=== PATIENT | female | born 1960 | race Caucasian/White ===

== ENCOUNTER → 2016-08-16 | Outpatient (CLI) | payer OTHER | LOC: M PAIN 11:00 | PROVIDERS: ATTEND Nurse Practitioner Family | DX: Z53.8 Procedure and treatment not carried out for other reasons (principal) ==

== ENCOUNTER → 2017-03-07 | Outpatient (CLI) | payer BC ==
--- NOTE | 2017-03-07 10:16 | REPMRS ---
Patient History The patient states she had a clinical breast exam in 02/2017. Patient is postmenopausal. Family history of pancreatic cancer in father at age 39, ovarian cancer in maternal aunt, colorectal cancer in maternal aunt, and ovarian cancer in maternal grandmother. Digital Woman Screen Mammo: March 07, 2017 - Exam #: [id number] Bilateral CC and MLO view(s) were taken. Technologist: Darling Torrez Technologist Prior study comparison: December 07, 2015, left breast digital mammo diagnostic unilateral, performed at [facility]. November 30, 2015, digital woman screen mammo performed at [facility]. November 08, 2014, digital woman screen mammo performed at [facility]. FINDINGS: The breast tissue is heterogeneously dense. This may lower the sensitivity of mammography. There is a moderate amount of heterogeneously dense fibroglandular tissue which is fairly symmetric. There is no interval development of dominant mass, architectural distortion, or clustered microcalcification typical of malignancy. There has been no change in the appearance of the mammogram from the prior studies. ASSESSMENT: BI-RADS/ACR category 1 mammogram. Negative. Recommendation Routine screening mammogram of both breasts in 1 year (for women over age 40). This mammogram was interpreted with the aid of an FDA-approved computer-aided dectection system. Electronically Signed By: Alex Gustafson MD 03/07/17 1016
--- NOTE | 2017-03-07 15:19 | REP ---
Pelvic sonography: History: Positive family history of ovarian carcinoma. Abdominal bloating. Findings: Transabdominal and transvaginal scanning are performed. Uterine dimensions are normal at 7.8 x 2.5 x 4.1 cm. Endometrial echo is 0.5 cm thick and centrally placed. Nabothian cysts are seen in the cervix, the largest is 1.1 cm in diameter. Normal ovaries are seen bilaterally. Right ovarian dimension is 1.8 x 0.9 x 1.7 cm. Left ovary measures 1.6 x 0.9 x 1.7 cm. Doppler flow is normal in both ovaries. Resistive indices are 0.53 on the right and 0.56 on the left. Impression: Normal pelvic sonography.
== END ==
LOC: M WHC 08:44
PROVIDERS: ATTEND Nurse Practitioner Family
DX: Z12.31 Encounter for screening mammogram for malignant neoplasm of breast (principal); Z80.41 Family history of malignant neoplasm of ovary; R14.0 Abdominal distension (gaseous)
CPT/HCPCS: 76830; 76856; G0202

== ENCOUNTER → 2018-03-11 | Outpatient (CLI) | payer BC | LOC: M WHC 09:16 | DX: Z12.31 Encounter for screening mammogram for malignant neoplasm of breast (principal) ==

== ENCOUNTER 2018-04-29 18:36 | Emergency (ER) | payer BC, OTHER ==
[2018-04-29 19:16] LABS: BASO % 0.4 % (0.0-1.0); EOS # 0.1 10^3/uL (0.0-0.50); HEMATOCRIT 42.3 % (36.0-47.0); HEMOGLOBIN 14.2 g/dl (12.0-15.5); IMMATURE GRANULOCYTE % 0.3 % (0-3.0); LYMPH % 30.2 % (24.0-44.0); MEAN CORPUSCULAR HEMOGLOBIN 32.1 pg (27.0-33.0); MEAN CORPUSCULAR HGB CONC 33.6 g/dl (32.0-36.5); MEAN CORPUSCULAR VOLUME 95.5 fl (80.0-96.0); MONO # 0.4 10^3/uL (0.0-0.8); MONO % 6.4 % (0.0-5.0); NEUTROPHILS # 4.2 10^3/uL (1.8-7.7); NEUTROPHILS % 61.7 % (36.0-66.0); PLATELET COUNT, AUTOMATED 295 10^3/uL (150-450); RED BLOOD COUNT 4.43 10^6/uL (4.00-5.40); RED CELL DISTRIBUTION WIDTH 12.4 % (11.5-14.5); WHITE BLOOD COUNT 6.8 10^3/uL (4.0-10.0)
[2018-04-29 19:29] LABS: INR 0.91; PROTHROMBIN TIME 12.3 SECONDS (12.1-14.4)
[2018-04-29 19:40] LABS: D-DIMER QUANT < 270.0 ng/ml (<500)
[2018-04-29 19:54] LABS: ALT/SGPT 35 U/L (12-78); ANION GAP 7 MEQ/L (8-16); AST/SGOT 23 U/L (7-37); BLOOD UREA NITROGEN 13 MG/DL (7-18); CALCIUM LEVEL 9.3 MG/DL (8.5-10.1); CARBON DIOXIDE LEVEL 30 MEQ/L (21-32); CHLORIDE LEVEL 105 MEQ/L (98-107); CK-MB VALUE MASS 1.5 NG/ML (<3.6); CPK CREATINE PHOSPHOKINASE 83 U/L (26-192); CREATININE FOR GFR 0.76 MG/DL (0.55-1.30); GLOMERULAR FILTRATION RATE > 60.0 (>51); GLUCOSE, FASTING 82 MG/DL (70-100); POTASSIUM SERUM 3.7 MEQ/L (3.5-5.1); SODIUM LEVEL 142 MEQ/L (136-145)
[2018-04-29 19:55] LABS: ALKALINE PHOSPHATASE 139 U/L (45-117); BILIRUBIN,DIRECT 0.2 MG/DL (0.0-0.2); BILIRUBIN,TOTAL 0.6 MG/DL (0.2-1.0); MB/CK RELATIVE INDEX 0.02 (< OR =4); TOTAL PROTEIN 7.7 GM/DL (6.4-8.2)
[2018-04-29 19:56] LABS: ALBUMIN 4.3 GM/DL (3.2-5.2); ALBUMIN/GLOBULIN RATIO 1.26 (1.00-1.93); NT-PRO BNP 24 PG/ML (<125); THYROXINE (T4) 8.7 UG/DL (4.5-12.0); TROPONIN I < 0.02 NG/ML (< 0.10)
[2018-04-29 23:07] LABS: GOLD SPEC TUBE RECIEVED
== END 2018-04-29 20:10 | disposition home or self-care (01) ==
LOC: M ED 18:36
DX: R06.02 Shortness of breath (principal); K21.9 Gastro-esophageal reflux disease without esophagitis; Z88.1 Allergy status to other antibiotic agents; Z88.2 Allergy status to sulfonamides
CPT/HCPCS: 71046

== ENCOUNTER → 2019-03-12 | Outpatient (REF) | payer OTHER ==
[~2019-03-12] MED LIST: FLUTISP; RANI15TA PO
[2019-03-17 14:08] LABS: HPV HYBRID CAPTURE II Negative (Negative)
== END ==
LOC: M SFHCWAGY 09:24
PROVIDERS: ATTEND Nurse Practitioner Family
DX: Z12.4 Encounter for screening for malignant neoplasm of cervix (principal)

== ENCOUNTER → 2019-03-12 | Outpatient (CLI) | payer BC ==
--- NOTE | 2019-03-12 10:27 | REPMRS ---
Patient History The patient states she had a clinical breast exam in 03/2019. Patient is postmenopausal. Family history of ovarian cancer and colorectal cancer in maternal aunt, ovarian cancer in maternal grandmother, pancreatic cancer at age 39 in father. No Hormone Replacement Therapy Digital Woman Screen Mammo: March 12, 2019 - Exam #: [id number] Bilateral CC and MLO view(s) were taken. Technologist: Venita Sanders, Technologist Prior study comparison: March 11, 2018, bilateral digital woman screen mammo performed at [facility]. March 07, 2017, digital woman screen mammo performed at [facility]. November 30, 2015, digital woman screen mammo performed at [facility]. FINDINGS: The breast tissue is heterogeneously dense. This may lower the sensitivity of mammography. There is a moderate amount of heterogeneously dense fibroglandular tissue which is fairly symmetric. There is no interval development of dominant mass, architectural distortion, or grouped microcalcification typical of malignancy. There has been no change in the appearance of the mammogram from the prior studies. 3-D tomosynthesis shows no additional findings. Assessment: BI-RADS/ACR category 1 mammogram. Negative Mammogram. Recommendation Routine screening mammogram of both breasts in 1 year (for women over age 40). This patient's Lifetime Breast Cancer RIsk is estimated at 9.2 %. This mammogram was interpreted with the aid of an FDA-approved computer-aided dectection system. Electronically Signed By: Alex Gustafson MD 03/12/19 [id number]
== END ==
LOC: M WHC 09:06
PROVIDERS: ATTEND Nurse Practitioner Family
DX: Z12.31 Encounter for screening mammogram for malignant neoplasm of breast (principal)

== ENCOUNTER → 2020-04-05 | Outpatient (CLI) | payer BC ==
--- NOTE | 2020-04-05 12:19 | REPMRS ---
Patient History The patient states she had a clinical breast exam in March 2020. Family history of ovarian cancer and colorectal cancer in maternal aunt, ovarian cancer in maternal grandmother, pancreatic cancer at age 39 in father. No Hormone Replacement Therapy 3D TOMOSYNTHESIS WAS PERFORMED. The Juan M Velasquez lifetime risk for breast cancer is 8.9%. VOLPARA JYOTHI B. Digital Woman Screen Mammo: April 05, 2020 - Exam #: [id number] Bilateral CC and MLO view(s) were taken. Technologist: RT Romain Prior study comparison: March 12, 2019, bilateral digital woman screen mammo performed at [facility][1]. March 11, 2018, bilateral digital woman screen mammo performed at [facility][1]. FINDINGS: The breast tissue is heterogeneously dense. This may lower the sensitivity of mammography. There has been no change in the appearance of the mammogram from the prior studies. There is a moderate amount of residual fibroglandular tissue which is fairly symmetric. There is no interval development of dominant mass, areas of architectural distortion, or clustered microcalcification typical of malignancy. Assessment: BI-RADS/ACR category 1 mammogram. Negative Mammogram. Recommendation Routine screening mammogram in 1 year (for women over age 40). This mammogram was interpreted with the aid of an FDA-approved computer-aided dectection system. Electronically Signed By: Paddy Taylor MD 04/05/20 0937
== END ==
LOC: M WHC 09:56
PROVIDERS: ATTEND Nurse Practitioner Family
DX: Z12.31 Encounter for screening mammogram for malignant neoplasm of breast (principal); Z80.41 Family history of malignant neoplasm of ovary; Z80.0 Family history of malignant neoplasm of digestive organs

== ENCOUNTER → 2021-04-11 | Outpatient (REF) | payer OTHER | LOC: M LAB REF 15:03 | PROVIDERS: ATTEND Orthopaedic Surgery | DX: M67.441 Ganglion, right hand (principal) ==